=== PATIENT | male | born 1980 | race Caucasian/White ===

== ENCOUNTER → 2019-01-05 | Outpatient (CLI) | payer OTHER ==
[~2019-01-05] MED LIST: COLE1TAB2 PO; HYDR25TA PO; PRAM0.255 PO; TRAZ-118 PO
--- NOTE | 2019-01-06 00:37 | PAIN ---
DATE OF SERVICE: 01/05/2019 INITIAL CONSULTATION FOR PAIN CLINIC CHIEF COMPLAINT: Low back and right lower extremity pain. HISTORY OF PRESENT ILLNESS: This is a 38-year-old male, who presents with history of pain since about 2004, not a result of any specific injury or action he is aware of. The patient has active duty. He has had a lot of physical exertion with his back and the legs over the years, reports it is becoming much worse over the past year in the low back, right lower extremity, posterior gluteus, posterior thigh, and to the calf as well. The patient reports it is worse with walking, especially with running. Walking for greater distances is not necessarily exacerbating but short distances are and running especially is most painful. The patient reports it is constant with numbness and radiating pain in the leg, changes during the day with activities, has also cramping sensation, worse in the middle of the night, awakens him from sleep almost every night but not at all times. The patient reports it does not affect his bowel or bladder control but does affect his ability to walk and run especially. The patient has had physical therapy up to 2017, also chiropractic treatment and exercises doing constantly and currently. The patient has tried gabapentin, Flexeril, Naprosyn, none of which had decreased the pain significantly. The patient rates his disability rating from 0-10, 10 being the worst, is a 5 with family and home responsibilities and recreation, 1 with social activity, 2 with occupation and sexual behavior, 0 with self-care, and 5 with life support activities. The patient reports no loss of motor function and no significant symptoms on the left side. PAST MEDICAL HISTORY: Significant for gastroesophageal reflux, irritable bowel syndrome, spastic colon and colitis, headaches. PAST SURGICAL HISTORY: Previous surgeries include tonsillectomy, LASIK procedure, 6 colonoscopies, and a laparoscopic Hernandez fundoplication in 2006. CURRENT MEDICATIONS: Include colestipol, hydroxyzine, trazodone, and Mirapex. ALLERGIES: The patient has no known drug allergies. FAMILY HISTORY: Significant for no major medical problems or conditions he is aware of. SOCIAL HISTORY: The patient does not smoke but does drink alcohol 1-2 drinks twice a week and uses chewing tobacco. The patient is , lives locally, and has 3 children; living in the home as well as has active duty and lives at [place], [place]. REVIEW OF SYSTEMS: The patient's review of systems is positive for those items mentioned in history of present illness. All systems reviewed and otherwise negative. It is complete, full, and well documented on the patient's chart. PHYSICAL EXAMINATION: VITAL SIGNS: The patient's blood pressure is 132/86, pulse 76, respirations 18, temperature 98.3 degree Fahrenheit, height is 5 feet 10 inches, and weight 202 pounds. GENERAL: The patient is awake, alert, oriented, appropriate, very pleasant demeanor. HEENT: Shows normocephalic, atraumatic. Extraocular movements are intact and symmetrical. Oral cavity: Mucous membranes moist and pink. Dentition is intact. NECK: Shows anterior throat supple without palpable lymphadenopathy noted. Swallow reflex symmetrical. CHEST: Shows normal on inspection. Breath sounds are clear to auscultation bilaterally. HEART: Shows S1, S2 clear. No murmurs auscultated. ABDOMEN: Soft, nontender, nondistended. No palpable organomegaly is noted. No rebound or guarding demonstrated. BACK: Shows spine grossly in the midline; normal-appearing thoracic kyphosis and lumbar lordotic curvature. Lumbar paraspinous muscle shows symmetrical on inspection; on palpation, some moderate tenderness diffusely bilaterally going diffusely without radiation. The patient has good rotational motion of lumbar spine, both laterally as well as extension and flexion without difficulty. EXTREMITIES: The patient's lower extremities show deep tendon reflexes 2+ in the patellar, 1+ tendo-calcaneus tendons. Motor exam is strong with 5/5 dorsiflexion, extension; quadriceps and hamstring flexion symmetrical. Peripheral pulses are 1+ posterior tibial. The patient's straight leg raise is positive on the right about 45 degrees, decreased with knee flexion, left side is negative. Gaenslen's and Estevan's maneuvers are negative bilaterally. He is able to stand, stand on the toes without difficulty or loss of balance, walks with normal appearing gait without any assistive devices. SKIN: The patient's skin shows warm and dry, good turgor. No edema. No sores, rashes, or bruising. IMPRESSION: 1. This is a 38-year-old male with long history of low back pain, right lower extremity pain in a radicular fashion. 2. MRI scan of the lumbar spine showing L5-S1 mild degenerative loss of T2 signal and small left paracentral annular tears and broad-based left paracentral disk protrusion as well. 3. History of headaches. 4. Irritable bowel syndrome. PLAN: Options were discussed with the patient including conservative medical managements, physical therapies, and interventional techniques. He would like to pursue interventional techniques. We will wait for preauthorization for lumbar epidural steroid injection. We described the procedure using description as well as anatomical models to describe the procedure. The patient will wait for preauthorization and would like to return. Once this is obtained, we will plan on lumbar epidural steroid injection at that time. In the meantime, we will try Medrol Dosepak. The patient was given instruction as well as side effects to be aware of with the medication and will follow up as scheduled. PETE FOWLER MD DR: GARRET/raeann JOB#: [id number] / [id number]
== END | disposition home or self-care (01) ==
LOC: PNCL 09:17
PROVIDERS: ATTEND Anesthesiology
DX: M51.27 Other intervertebral disc displacement, lumbosacral region (principal); R51 Headache; K58.9 Irritable bowel syndrome, unspecified; Z90.89 Acquired absence of other organs; Z79.899 Other long term (current) drug therapy
CPT/HCPCS: G0463

== ENCOUNTER → 2019-01-14 | Outpatient (CLI) | payer OTHER ==
[~2019-01-14] MED LIST changes: +IOHEXOL 180 MG/ML 10 ML VIAL. ONE; +methylPREDNISolone ACETATE 40 MG/ML VIAL. ONE; +methylPREDNISolone ACETATE 80 MG/ML VIAL. ONE
--- NOTE | 2019-01-14 10:50 | PAIN ---
DATE OF SERVICE: 01/14/2019 PROGRESS NOTE FOR PAIN CLINIC DIAGNOSES: Lumbar radiculopathy with lumbar degenerative disk disease. HISTORY OF PRESENT ILLNESS: The patient is a 38-year-old male who returns for followup status post initial evaluation and preauthorization for lumbar epidural steroid injection. ____ obtained and now would like to proceed. He reports still significant pain in the low back, right lower extremity, posterior gluteus, and posterior thigh. It is cramping, aching, and constant in description. The patient reports it is 7 on a scale of 10 at its worst. Over the past week, 4 on average, 3 at its least, and is a 4 today. The patient reports no new motor or sensory deficits, no new bowel or bladder incontinence or other complaints. We tried Medrol Dosepak, which he reports helped only a small amount while he was taking it. The patient reports no new changes, no new motor or sensory deficits, no new bowel or bladder incontinence or other complaints. PHYSICAL EXAMINATION: VITAL SIGNS: The patient's blood pressure 130/85, pulse 83, respirations 16, temperature 98.7 degrees Fahrenheit, height is 5 feet 10 inches, weight is 201 pounds. GENERAL: The patient is awake, alert, oriented, appropriate, very pleasant demeanor. HEENT: Shows normocephalic, atraumatic. Extraocular movements are intact and symmetrical. Oral cavity: Mucous membranes moist and pink. Dentition is intact. NECK: Shows anterior throat supple without palpable lymphadenopathy noted. Swallow reflex symmetrical. CHEST: Shows normal on inspection. Breath sounds clear to auscultation bilaterally. HEART: Shows S1, S2 clear. No murmurs auscultated. ABDOMEN: Soft, nontender, nondistended. No palpable masses. BACK: Shows grossly midline spine. Lumbar paraspinous muscle shows symmetrical on inspection, with palpation there is some moderate tenderness diffusely bilaterally in the lower lumbar distribution, but without radiation. The patient has good rotational motion of lumbar spine both laterally as well as extension and flexion without difficulty. EXTREMITIES: Lower extremities show deep tendon reflexes are 2+ in the patellar, 1+ tendo calcaneus tendons. Motor exam is strong with 5/5 dorsiflexion and extension bilaterally. Peripheral pulses are 1+ posterior tibia. No peripheral edema is noted. Options were discussed with the patient. The patient's old chart was reviewed as well as his current medication regimen updated. Current review of systems updated today as well. We will proceed with a lumbar epidural steroid injection today with fluoroscopic guidance. Risks were again discussed including, but not limited to bleeding, infection, possibility of epidural hematoma, subsequent neurological compromise, dural puncture, headaches, spinal cord and/or nerve damage, side effects of steroid medication and poor results regarding pain control. The patient understands and wished to proceed. The patient will return to clinic in approximately 2 weeks for followup. She was counseled on return appointment, activity level, and side effects to be aware of. DIAGNOSIS: Lumbar radiculopathy with lumbar degenerative disk disease. PROCEDURE: Lumbar epidural steroid injection, translaminar approach L5-S1 level using C-arm fluoroscopic guidance under sterile prep and drape using local anesthetic. MEDICATION INJECTED: The patient received a total of 120 mg Depo-Medrol plus 10 mL of preservative-free normal saline and 2 mL of contrast. CONDITION AT DISCHARGE: Stable. The patient tolerated the procedure well, had no complications. PETE FOWLER MD DR: GARRET/raeann JOB#: [id number] / [id number]
== END ==
LOC: PNCL 07:48
PROVIDERS: ATTEND Anesthesiology
DX: M51.16 Intervertebral disc disorders with radiculopathy, lumbar region (principal)
CPT/HCPCS: 62323; J1030; J1040; Q9965

== ENCOUNTER → 2019-02-02 | Outpatient (CLI) | payer OTHER ==
[~2019-02-02] MED LIST changes: -IOHEXOL 180 MG/ML 10 ML VIAL. ONE; -methylPREDNISolone ACETATE 40 MG/ML VIAL. ONE; -methylPREDNISolone ACETATE 80 MG/ML VIAL. ONE
--- NOTE | 2019-02-02 12:21 | PAIN ---
DATE OF SERVICE: 02/02/2019 PROGRESS NOTE FOR PAIN CLINIC DIAGNOSES: Lumbar radiculopathy with lumbar degenerative disk disease. HISTORY OF PRESENT ILLNESS: The patient is a 38-year-old male who returns for followup status post lumbar epidural steroid injection x 1. The patient reports about 50% improvement in his low back pain and right lower extremity pain. The patient reports right leg is doing much better. Still some pain in low back, worse noticeable with walking and standing. He has been doing his normal activities with greater ease and comfort, distance walking, doing work activities, household activities as well as traveling. He reports he is sleeping somewhat better, but the pain does not awaken him from sleep. The patient does take trazodone, which helps him sleep as well. The patient reports no new motor or sensory deficits, no new bowel or bladder incontinence. Reports pain is 7 on a scale of 10 its worst over the past week, 5 on average, 4 at its least and is a 5 today. The patient reports it is aching type, cramping, constant at times in the low back and occasionally in the right lower extremity. The patient reports no new motor or sensory deficits, no new bowel or bladder incontinence or other complaints. PHYSICAL EXAMINATION: VITAL SIGNS: The patient's blood pressure 119/86, pulse 77, respirations 16, temperature 98.8 degrees Fahrenheit, height is 5 feet 10 inches and weight is 202 pounds. GENERAL: The patient is awake, alert, oriented, appropriate, very pleasant demeanor. HEENT: Head is normocephalic, atraumatic. Extraocular movements are intact and symmetrical. Oral cavity: Mucous membranes moist and pink. Dentition is intact. NECK: Shows anterior throat supple without palpable lymphadenopathy noted. Swallow reflex symmetrical. CHEST: Shows normal on inspection. Breath sounds clear to auscultation bilaterally. HEART: Shows S1, S2 clear. No murmurs auscultated. ABDOMEN: Soft, nontender, nondistended. No palpable organomegaly is noted. No rebound or guarding demonstrated. BACK: Shows spine grossly in the midline. Normal appearing thoracic kyphosis and lumbar lordotic curvature. Lumbar paraspinous muscle shows symmetrical on inspection, on palpation shows some moderate tenderness diffusely bilaterally, but only diffusely without significant radiation. EXTREMITIES: The patient's lower extremities show deep tendon reflexes at 2+ in the patellar, 1+ tendo-calcaneus tendons. Motor exam is strong with 5/5 dorsiflexion and extension. Options were discussed with the patient. The patient's old chart was reviewed as his current medication regimen updated. Current review of systems updated today as well. We will preauthorize the patient for a second lumbar epidural steroid injection. He still has some significant radicular pain at L5-S1 dermatomal distribution on the right. The patient will continue with exercising, strengthening and stretching as well as daily walking as tolerated. The patient will return to clinic in approximately 1 week to plan on lumbar epidural steroid injection at that time. PETE FOWLER MD DR: GARRET/raeann JOB#: [id number] / [id number]
== END | disposition home or self-care (01) ==
LOC: PNCL 10:11
PROVIDERS: ATTEND Anesthesiology
DX: M51.16 Intervertebral disc disorders with radiculopathy, lumbar region (principal)
CPT/HCPCS: G0463

== ENCOUNTER → 2019-06-02 | Outpatient (CLI) | payer OTHER ==
[~2019-06-02] MED LIST changes: +IOHEXOL 180 MG/ML 10 ML VIAL. ONE; +methylPREDNISolone ACETATE 40 MG/ML VIAL. ONE; +methylPREDNISolone ACETATE 80 MG/ML VIAL. ONE
--- NOTE | 2019-06-02 10:44 | PAIN ---
DATE OF SERVICE: 06/02/2019 PROGRESS NOTE FOR PAIN CLINIC DIAGNOSES: Lumbar radiculopathy with lumbar degenerative disk disease. HISTORY OF PRESENT ILLNESS: The patient is a 39-year-old male, who returns for followup status post lumbar epidural steroid injection in 01/2019. The patient did well with this with about a 50% improvement, decreased pain in the low back and right lower extremity. The patient reports the pain is returning now over the past few months in the low back, primarily some on the right leg as well in the posterior gluteus, posterior thigh, mostly in the low back. The patient reports it is cramping, aching, sharp, tight, becoming more constant, severe, worse with activity, walking, standing, changing positions and sitting for prolonged periods, which he does at work. The patient reports the pain is a 10 on a scale of 10 at its worst over the past week, 6 on average, 4 at its least and is a 4 today. The patient reports no new motor or sensory deficits. It is disturbing his sleep frequently about every 4 hours. PHYSICAL EXAMINATION: VITAL SIGNS: The patient's blood pressure 119/82, pulse 74, respirations 18, temperature 98.1 degrees Fahrenheit, height is 70 inches, weight is 203 pounds. GENERAL: The patient is awake, alert, oriented, appropriate, very pleasant demeanor. HEENT: Shows normocephalic, atraumatic. Extraocular movements are intact and symmetrical. Oral cavity: Mucous membranes moist and pink. Dentition is intact. NECK: Shows anterior throat supple without palpable lymphadenopathy noted. Swallow reflex symmetrical. CHEST: Shows normal on inspection. Breath sounds clear to auscultation bilaterally. HEART: Shows S1, S2 clear. No murmurs auscultated. ABDOMEN: Soft, nontender, nondistended. No palpable organomegaly is noted. No rebound or guarding demonstrated. BACK: Shows spine grossly in the midline. Normal appearing thoracic kyphosis, some minor flattening of lumbar lordotic curvature. Lumbar paraspinous muscle shows symmetrical on inspection with palpation shows some moderate tenderness, but only diffusely without significant radiation. The patient has good rotational motion of lumbar spine, both laterally as well as extension and flexion without significant difficulty. Peripheral pulses are 1+ posterior tibia. No peripheral edema is noted. Options were discussed with the patient. The patient's old chart was reviewed as his current medication regimen updated. Current review of systems updated today as well. We will proceed with a second in the series of lumbar epidural steroid injection today with fluoroscopic guidance. Risks were again discussed including, but not limited to bleeding, infection, possibility of epidural hematoma, subsequent neurological compromise, dural puncture, headaches, spinal cord and/or nerve damage, side effects of steroid medication and poor results regarding pain control. The patient understands and wished to proceed. The patient will return to clinic in approximately 2 weeks for followup. He was counseled on return appointment, activity level and side effects to be aware of. DIAGNOSES: Lumbar radiculopathy with lumbar degenerative disk disease. PROCEDURE: Lumbar epidural steroid injection, translaminar approach at L5-S1 level using C-arm fluoroscopic guidance under sterile prep and drape using local anesthetic. MEDICATION INJECTED: A total of 120 mg Depo-Medrol plus 10 mL of preservative-free normal saline and 2 mL of contrast. CONDITION AT DISCHARGE: Stable. The patient tolerated procedure well, had no complications. PETE FOWLER MD DR: GARRET/raeann JOB#: [id number] / [id number]
== END ==
LOC: PNCL 08:07
PROVIDERS: ATTEND Anesthesiology
DX: M51.16 Intervertebral disc disorders with radiculopathy, lumbar region (principal)
CPT/HCPCS: 62323; J1030; J1040; Q9965